=== PATIENT | female | born 1985 | race Two or more races ===

== ENCOUNTER 2018-12-28 14:29 | Observation (INO) | payer MEDICAID ==
[~2018-12-28 14:29] MED LIST: PREN-96 PO
[2018-12-28] MEDS ORDERED: METF-370 PO (14:49)
== END 2018-12-28 16:00 | disposition home or self-care (01) | DRG 566 ==
LOC: LDRP 14:29
PROVIDERS: ADMIT Obstetrics & Gynecology; ATTEND Obstetrics & Gynecology
DX: O24.419 Gestational diabetes mellitus in pregnancy, unspecified control (principal); Z3A.36 36 weeks gestation of pregnancy
CPT/HCPCS: 59025; 76818; 81002; G0378

== ENCOUNTER 2019-01-04 10:20 | Observation (INO) | payer MEDICAID ==
[~2019-01-04 10:20] MED LIST changes: +METF-370 PO
== END 2019-01-04 12:50 | disposition home or self-care (01) | DRG 566 ==
LOC: LDRP 10:20
PROVIDERS: ADMIT Obstetrics & Gynecology; ATTEND Obstetrics & Gynecology
DX: O24.419 Gestational diabetes mellitus in pregnancy, unspecified control (principal); Z3A.37 37 weeks gestation of pregnancy
CPT/HCPCS: 59025; 76818; 81002; 82948; 82962; G0378

== ENCOUNTER 2019-01-08 13:51 | Observation (INO) | payer MEDICAID | END 2019-01-08 16:27 | disposition home or self-care (01) | DRG 566 | LOC: LDRP 13:51 | PROVIDERS: ADMIT Specialist; ATTEND Specialist | DX: O24.419 Gestational diabetes mellitus in pregnancy, unspecified control (principal); Z3A.37 37 weeks gestation of pregnancy | CPT/HCPCS: 59025; 76818; 81002; 82948; 82962; G0378 ==

== ENCOUNTER 2019-01-10 10:59 | Observation (INO) | payer MEDICAID | END 2019-01-10 12:51 | disposition home or self-care (01) | DRG 566 | LOC: LDRP 10:59 | PROVIDERS: ADMIT Specialist; ATTEND Specialist | DX: O24.415 Gestational diabetes mellitus in pregnancy, controlled by oral hypoglycemic drugs (principal); Z3A.37 37 weeks gestation of pregnancy | CPT/HCPCS: 59025; 76818; 81002; 82962; G0378 ==

== ENCOUNTER 2019-01-11 11:27 | Observation (INO) | payer MEDICAID | END 2019-01-16 12:25 | disposition home or self-care (01) | DRG 566 | LOC: CANPREIN → LDRP 01-16 10:50 → UNDOADMOB 01-16 10:50 → OVERFLOW 01-16 10:50 → UNDODISOB 01-16 12:25 | PROVIDERS: ADMIT Specialist; ATTEND Specialist | DX: O24.419 Gestational diabetes mellitus in pregnancy, unspecified control (principal); Z3A.38 38 weeks gestation of pregnancy | CPT/HCPCS: 59025; 76818; 81002; 82948; 82962; G0378 ==

== ENCOUNTER 2019-01-19 12:58 | Observation (INO) | payer MEDICAID ==
[2019-01-20] MEDS ORDERED: FERR1TAB36 PO (04:29)
== END 2019-01-19 14:15 | disposition home or self-care (01) | DRG 833 ==
LOC: LDRP 12:58
PROVIDERS: ADMIT Obstetrics & Gynecology; ATTEND Obstetrics & Gynecology
DX: O24.419 Gestational diabetes mellitus in pregnancy, unspecified control (principal); Z3A.39 39 weeks gestation of pregnancy
CPT/HCPCS: 59025; 76818; 81002; G0378

== ENCOUNTER 2019-01-20 02:44 | Inpatient (IN) | payer MEDICAID ==
[~2019-01-20] VITALS: Ht 147.3 cm; Wt 68.9 kg
[2019-01-20] MEDS ORDERED: LACT. RINGERS/OXYTOCIN 20UNITS 1,000 ML IV SCH (03:28)
[2019-01-20] MEDS ORDERED: LIDOCAINE 2%HCL (LOCAL ANESTH.) INJ 20ML MDV ID PRN (03:30)
[2019-01-20] MEDS ORDERED: METHYLERGONOVINE MALEATE 0.2 MG/ML AMP IM PRN (03:30)
[2019-01-20] MEDS ORDERED: WITCH HAZEL-GLYCERIN PAD TOP PRN (03:30)
[2019-01-20] MEDS ORDERED: PHISODERM TOP SOLN 240ML BTL TOP PRN (03:30)
[2019-01-20] MEDS ORDERED: NALBUPHINE HCL 10 MG/1ml INJECTION IV PRN (03:30)
[2019-01-20] MEDS ORDERED: DERMOPLAST 60ML BOTTLE TOP PRN (03:30)
[2019-01-20] MEDS ORDERED: PROMETHAZINE HCL 25 MG/ML 1ML IV PRN (03:45)
[2019-01-20] MEDS ORDERED: ACCU-CHEK COMFORT CURVE STRIP VI SCH (04:00)
[2019-01-20 04:22] LABS: Basophils # (auto) 0 uL; Basophils % (auto) 0.3 % (0.0-2.0); Eosinophils # (auto) 0.1 uL; Eosinophils % (auto) 0.9 % (0.0-7.0); Hematocrit 34.1 % (36.0-46.0); Hemoglobin 11.7 g/dL (12.2-16.2); Lymphocytes # (auto) 1.8 uL; Lymphocytes % (auto) 24.9 % (10.0-50.0); Mean Corpuscular Hemoglobin 30.7 pg (28.0-32.0); Mean Corpuscular Hgb Conc. 34.4 g/dL (32.0-36.0); Mean Corpuscular Volume 89.2 fL (80.0-100.0); Monocytes # (auto) 0.4 uL; Monocytes % (auto) 6.3 % (0.0-12.0); Neutrophils # (auto) 4.8 uL; Neutrophils % (auto) 67.6 % (37.0-80.0); Nucleated Red Blood Cells % 0.1 %; Platelet Count (auto) 204 10^3/uL (140-450); Red Blood Cells 3.82 10^6/uL (4.0-5.20); Red Cell Distribution Width 15.6 % (11.8-14.3); White Blood Cell 7.2 10^3/uL (4.4-10.8)
[2019-01-20] MEDS ORDERED: FERR1TAB36 PO (04:29)
[2019-01-20 04:36] LABS: Albumin 2.6 g/dL (3.4-5.0); Calcium 8.4 mg/dL (8.5-10.1); Potassium 3.7 mmol/L (3.5-5.1)
[2019-01-20 04:39] LABS: Urine Bacteria NONE SEEN /hpf (None Seen); Urine Blood 2+ /uL (Negative); Urine Mucus FEW (None Seen); Urine Specific Gravity 1.022 (1.001-1.035); Urine WBC 18 /hpf (0 - 5)
[2019-01-20 04:40] LABS: INR < 0.93 (0.9-1.15); Partial Thromboplastin Time 26.5 sec (23.64-32.05)
[2019-01-20 04:50] LABS: Alcohol, Urine < 3.0 mg/dL (0-5); Amphetamine Screen, Urine NEGATIVE (NEGATIVE); Barbiturate Scree,Urine NEGATIVE (NEGATIVE); Benzodiazephine Screen, Urine NEGATIVE (NEGATIVE); Cannabinoid Screen, Urine NEGATIVE (NEGATIVE); Cocaine Screen, Urine NEGATIVE (NEGATIVE); Opiate Scree,Urine NEGATIVE (NEGATIVE); Phencyclidine Screen, Urine NEGATIVE (NEGATIVE)
[2019-01-20 05:06] LABS: BUN/Creatinine Ratio 15.4
[2019-01-20 05:07] LABS: Bilirubin, Total 0.2 mg/dL (0.2-1.0); Total Protein 6.7 g/dL (6.4-8.2)
[2019-01-20] MEDS ORDERED: LACT. RINGERS/OXYTOCIN 20UNITS 500 ML IV ONE (07:03)
[2019-01-20] MEDS: IBUPROFEN 600 MG TAB PO PRN ×2 (08:26→15:38)
--- NOTE | 2019-01-20 09:24 | NUR ---
Ambulation: Patient OOB with standby assistance by RN. Patient ambulated to bathroom with steady gait. Patient able to void 400ml without difficulty. [facility] teaching provided with returned demonstration by patient. Dermoplast, tucks and clean peripad applied. Clean gown provided and bed linen changed. Patient ambulated back to bed with steady gait and no distress noted.
[2019-01-20] MEDS: LACTATED RINGER'S 1,000 ML IV SCH ×2 (11:28→19:28)
[2019-01-20 11:30] VITALS: BP 109/60
[2019-01-20] MEDS ORDERED: TETANUS-DIPTH-ACEL PERTUSSIS 0.5ML SYRG IM ONE (14:30)
[2019-01-20 15:25] VITALS: BP 108/66
--- NOTE | 2019-01-20 18:30 | NUR ---
Teaching: Reviewed information in [facility] booklet with patient. Discussed benefits of and risks associated with not . Discussed different positions, proper latch, feeding cues, and baby-led . Provided information of medication side effects related to . All questions and concerns addressed at this time. Patient verbalized understanding of information.
[2019-01-20 19:00] VITALS: BP 117/73
[2019-01-20 22:55] VITALS: BP 112/65
[2019-01-21] MEDS: LACTATED RINGER'S 1,000 ML IV SCH (02:12)
[2019-01-21] MEDS: IBUPROFEN 600 MG TAB PO PRN (02:12)
[2019-01-21 03:00] VITALS: BP 109/69
[2019-01-21 07:00] VITALS: BP 112/59
[2019-01-21 07:10] LABS: RPR Non Reactive (Non Reactive)
--- NOTE | 2019-01-21 10:10 | NUR ---
ORDERS RECEIVED TO DISCHARGE PT HOME. ORDERS CARRIED OUT
--- NOTE | 2019-01-21 10:30 | NUR ---
Discharge: Discharge instructions given as ordered. Pt encouraged to follow up with [facility] as instructed. All questions and concerns addressed. Patient verbalized understanding. Medication reconciliation completed and copy given to patient. All required/requested vaccines given and copies of vaccinations given to patient. Patient encouraged to prepare to depart unit.
[2019-01-21 11:20] VITALS: BP 118/68
--- NOTE | 2019-01-21 11:30 | NUR ---
Discharge: Patient taken to vehicle via wheelchair with all personal belongings, accompanied by staff and family member. No distress noted at time of departure, no adverse changes in status since initial assessment.
== END 2019-01-21 11:30 | disposition home or self-care (01) | DRG 560 ==
LOC: LDRP 02:44 → OBSVTOIN 03:25 → LDRP 03:30
PROVIDERS: ADMIT Obstetrics & Gynecology; ATTEND Obstetrics & Gynecology
PROC: 10E0XZZ Delivery of Products of Conception, External Approach (ICD-10-PCS; principal; 2019-01-20)
DX: O77.0 Labor and delivery complicated by meconium in amniotic fluid (principal); O24.429 Gestational diabetes mellitus in childbirth, unspecified control; Z37.0 Single live birth; Z3A.39 39 weeks gestation of pregnancy
CPT/HCPCS: 36415; 59025; 59612; 76815; 80053; 80307; 81001; 81002; 82962; 84112; 85025; 85610; 85730; 86592; 86850; 86900; 86901; 90715; 96365; 96366; 96372; G0378; J2590

== ENCOUNTER 2020-06-26 12:10 | Observation (INO) | payer MEDICAID | END 2020-06-26 13:13 | disposition home or self-care (01) | LOC: LDRP 12:10 | PROVIDERS: ADMIT Obstetrics & Gynecology; ATTEND Obstetrics & Gynecology | DX: O24.419 Gestational diabetes mellitus in pregnancy, unspecified control (principal); Z3A.32 32 weeks gestation of pregnancy | CPT/HCPCS: 59025; 81002; 82948; 82962; G0378; 76818 ==

== ENCOUNTER → 2020-06-26 | Outpatient (CLI) | payer MEDICAID ==
[~2020-06-26] MED LIST changes: +FERR1TAB36 PO
== END | disposition home or self-care (01) ==
LOC: XYW 10:16
PROVIDERS: ATTEND Obstetrics & Gynecology
DX: O24.419 Gestational diabetes mellitus in pregnancy, unspecified control (principal); Z3A.00 Weeks of gestation of pregnancy not specified
CPT/HCPCS: 76818

== ENCOUNTER 2020-07-02 15:35 | Observation (INO) | payer MEDICAID ==
[~2020-07-02] VITALS: Ht 147.3 cm; Wt 68.9 kg
[~2020-07-02 15:35] MED LIST changes: -FERR1TAB36 PO; -METF-370 PO
== END 2020-07-02 17:06 | disposition home or self-care (01) ==
LOC: LDRP 15:35
PROVIDERS: ADMIT Obstetrics & Gynecology; ATTEND Obstetrics & Gynecology
DX: O24.419 Gestational diabetes mellitus in pregnancy, unspecified control (principal); Z3A.33 33 weeks gestation of pregnancy
CPT/HCPCS: 59025; 76818; 81002; 82948; 82962; G0378

== ENCOUNTER 2020-07-16 09:01 | Observation (INO) | payer MEDICAID | END 2020-07-16 10:45 | disposition home or self-care (01) | LOC: LDRP 09:01 | PROVIDERS: ADMIT Obstetrics & Gynecology; ATTEND Obstetrics & Gynecology | DX: O24.419 Gestational diabetes mellitus in pregnancy, unspecified control (principal); Z3A.35 35 weeks gestation of pregnancy | CPT/HCPCS: 59025; 76818; 81002; 82948; 82962; G0378 ==

== ENCOUNTER 2020-07-24 08:55 | Observation (INO) | payer MEDICAID ==
[~2020-07-24] VITALS: Ht 147.3 cm; Wt 68.9 kg
== END 2020-07-24 11:25 | disposition home or self-care (01) ==
LOC: LDRP 08:55
PROVIDERS: ADMIT Obstetrics & Gynecology; ATTEND Obstetrics & Gynecology
DX: O24.419 Gestational diabetes mellitus in pregnancy, unspecified control (principal); Z3A.35 35 weeks gestation of pregnancy
CPT/HCPCS: 59025; 76818; 81002; 82962; G0378

== ENCOUNTER 2020-07-31 08:35 | Observation (INO) | payer MEDICAID | END 2020-07-31 09:55 | disposition home or self-care (01) | LOC: LDRP 08:35 | PROVIDERS: ADMIT Obstetrics & Gynecology; ATTEND Obstetrics & Gynecology | DX: O24.419 Gestational diabetes mellitus in pregnancy, unspecified control (principal); O34.63 Maternal care for abnormality of vagina, third trimester; N89.8 Other specified noninflammatory disorders of vagina; Z3A.37 37 weeks gestation of pregnancy; Z79.899 Other long term (current) drug therapy | CPT/HCPCS: 59025; 76818; 81002; 82948; 82962; G0378 ==

== ENCOUNTER 2020-08-04 09:42 | Observation (INO) | payer MEDICAID | END 2020-08-04 11:58 | disposition home or self-care (01) | LOC: LDRP 09:42 | PROVIDERS: ADMIT Specialist; ATTEND Specialist | DX: O62.9 Abnormality of forces of labor, unspecified (principal); Z3A.38 38 weeks gestation of pregnancy; Z79.899 Other long term (current) drug therapy | CPT/HCPCS: 59025; 76815; 81002; 82948; 82962; G0378 ==

== ENCOUNTER 2020-08-08 10:23 | Inpatient (IN) | payer MEDICAID ==
[~2020-08-08] VITALS: Ht 147.3 cm; Wt 68.9 kg
[2020-08-08] VITALS (8 sets, daily range): BP systolic 110–117; BP diastolic 60–71
[2020-08-08] MEDS ORDERED: ceFAZolin 1GM/50ML 50 ML IV ONE (12:30)
[2020-08-08] MEDS ORDERED: LACTATED RINGER'S 2,000 ML IV ONE (12:45)
[2020-08-08 13:43] LABS: Basophils # (auto) 0 10 ^3/uL (0-0.2); Basophils % (auto) 0.2 % (0.0-2.0); Eosinophils # (auto) 0 10 ^3/uL (0-0.8); Eosinophils % (auto) 0.7 % (0.0-7.0); Hematocrit 33.7 % (36.0-46.0); Hemoglobin 11.4 g/dL (12.2-16.2); Lymphocytes # (auto) 1.6 10 ^3/uL (0.4-5.4); Lymphocytes % (auto) 23.7 % (10.0-50.0); Mean Corpuscular Hemoglobin 30.3 pg (28.0-32.0); Mean Corpuscular Hgb Conc. 33.9 g/dL (32.0-36.0); Mean Corpuscular Volume 89.3 fL (80.0-100.0); Monocytes # (auto) 0.5 10 ^3/uL (0-1.3); Monocytes % (auto) 8.2 % (0.0-12.0); Neutrophils # (auto) 4.5 10 ^3/uL (1.6-8.6); Neutrophils % (auto) 67.2 % (37.0-80.0); Nucleated Red Blood Cells % 0.2 %; Platelet Count (auto) 190 10^3/uL (140-450); Red Blood Cells 3.77 10^6/uL (4.0-5.20); Red Cell Distribution Width 15.9 % (11.8-14.3); White Blood Cell 6.6 10^3/uL (4.4-10.8)
[2020-08-08] MEDS ORDERED: TETRACAINE 1% INJ 2 ML VIAL IJ ONE (13:44)
[2020-08-08 13:55] LABS: Urine Bacteria FEW /hpf (None Seen); Urine Blood Negative /uL (Negative); Urine Mucus FEW (None Seen); Urine WBC 8 /hpf (0 - 5)
[2020-08-08 13:56] LABS: Albumin 2.4 g/dL (3.4-5.0); BUN/Creatinine Ratio 12.2; Calcium 8.1 mg/dL (8.5-10.1); Potassium 3.7 mmol/L (3.5-5.1)
[2020-08-08 13:58] LABS: Bilirubin, Total 0.3 mg/dL (0.2-1.0); Total Protein 6.3 g/dL (6.4-8.2)
[2020-08-08] MEDS ORDERED: MORPHINE SULF(PF) 0.5MG/ML 10ML VIAL ONE (14:00)
[2020-08-08] MEDS ORDERED: fentaNYL CITRATE 100 MCG/2 ML VL ONE (14:00)
[2020-08-08] MEDS ORDERED: SODIUM CITR/CITRIC ACID ORAL SOLN 30 ML PO ONE (14:00)
[2020-08-08 14:11] LABS: INR 0.94 (0.9-1.15); Partial Thromboplastin Time 26.1 sec (23.0-31.2)
[2020-08-08] MEDS ORDERED: oxyTOCIN 10 UNIT/ML 10ML VIAL ONE (15:20)
[2020-08-08] MEDS ORDERED: ePHEDrine SULFATE 50 MG/ML AMP ONE (15:20)
[2020-08-08] MEDS ORDERED: MORPHINE SULFATE 4 MG/ML SYR/VIAL IV PRN (15:30)
[2020-08-08] MEDS ORDERED: ONDANSETRON HCL 4 MG/2 ML VIAL IV PRN ×2 (15:30→15:45)
[2020-08-08] MEDS ORDERED: ceFAZolin 1GM/50ML 50 ML IV SCH (15:30)
[2020-08-08] MEDS ORDERED: HYDROmorphone HCL 2 MG/ML VL IV PRN (15:45)
[2020-08-08] MEDS ORDERED: DexAMETHasone SOD PHOS 10MG/1ML VIAL INJ IV PRN (15:45)
[2020-08-08] MEDS ORDERED: KETOROLAC TROMETH 30 MG/ML 1ML VIAL IV PRN (15:45)
[2020-08-08] MEDS ORDERED: NALOXONE HCL 0.4 MG/ML VIAL IV PRN (15:45)
[2020-08-08] MEDS ORDERED: NALBUPHINE HCL 10 MG/1ml INJECTION SUBCUT ONE (15:45)
[2020-08-08] MEDS: diphenhdrAMINE HCL 50 MG/1 ML VL IV PRN (17:12)
[2020-08-08 17:27] LABS: Alcohol, Urine < 3.0 mg/dL (0-10); Amphetamine Screen, Urine NEGATIVE (NEGATIVE); Barbiturate Scree,Urine NEGATIVE (NEGATIVE); Benzodiazephine Screen, Urine NEGATIVE (NEGATIVE); Cannabinoid Screen, Urine NEGATIVE (NEGATIVE); Cocaine Screen, Urine NEGATIVE (NEGATIVE); Opiate Scree,Urine NEGATIVE (NEGATIVE); Phencyclidine Screen, Urine NEGATIVE (NEGATIVE)
[2020-08-08] MEDS: LACT. RINGERS/OXYTOCIN 20UNITS 1,000 ML IV SCH ×2 (19:10→22:10)
[2020-08-08] MEDS ORDERED: ACETAMINOPHEN IV 1000 MG/100ML (10MG/ML) IV ONE (20:15)
[2020-08-08] MEDS ORDERED: GUM (CHEWING) 1 GUM CHEW CHEW ONE (20:15)
[2020-08-08] MEDS: ceFAZolin 1GM/50ML 50 ML IV SCH (22:05)
[2020-08-08 23:29] LABS: Basophils # (auto) 0 10 ^3/uL (0-0.2); Basophils % (auto) 0.2 % (0.0-2.0); Eosinophils # (auto) 0 10 ^3/uL (0-0.8); Eosinophils % (auto) 0.2 % (0.0-7.0); Hematocrit 27.8 % (36.0-46.0); Hemoglobin 9.6 g/dL (12.2-16.2); Lymphocytes # (auto) 1.2 10 ^3/uL (0.4-5.4); Lymphocytes % (auto) 12.8 % (10.0-50.0); Mean Corpuscular Hemoglobin 30.5 pg (28.0-32.0); Mean Corpuscular Hgb Conc. 34.4 g/dL (32.0-36.0); Mean Corpuscular Volume 88.7 fL (80.0-100.0); Monocytes # (auto) 0.7 10 ^3/uL (0-1.3); Monocytes % (auto) 7.6 % (0.0-12.0); Neutrophils # (auto) 7.3 10 ^3/uL (1.6-8.6); Neutrophils % (auto) 79.2 % (37.0-80.0); Nucleated Red Blood Cells % 0.1 %; Platelet Count (auto) 167 10^3/uL (140-450); Red Blood Cells 3.13 10^6/uL (4.0-5.20); White Blood Cell 9.3 10^3/uL (4.4-10.8)
[2020-08-09] VITALS (13 sets, daily range): BP systolic 101–121; BP diastolic 58–82
[2020-08-09] MEDS: diphenhdrAMINE HCL 50 MG/1 ML VL IV PRN (01:16)
[2020-08-09] MEDS: LACT. RINGERS/OXYTOCIN 20UNITS 1,000 ML IV SCH (04:50)
[2020-08-09 05:07] LABS: RPR Non Reactive (Non Reactive)
[2020-08-09] MEDS ORDERED: LACTATED RINGER'S 1,000 ML IV SCH ×2 (05:30→15:30)
[2020-08-09] MEDS: ceFAZolin 1GM/50ML 50 ML IV SCH (05:55)
[2020-08-09 07:28] LABS: Basophils # (auto) 0 10 ^3/uL (0-0.2); Basophils % (auto) 0.4 % (0.0-2.0); Eosinophils # (auto) 0 10 ^3/uL (0-0.8); Eosinophils % (auto) 0.5 % (0.0-7.0); Hematocrit 25.3 % (36.0-46.0); Hemoglobin 8.8 g/dL (12.2-16.2); Lymphocytes # (auto) 1.2 10 ^3/uL (0.4-5.4); Lymphocytes % (auto) 16.9 % (10.0-50.0); Mean Corpuscular Hemoglobin 30.9 pg (28.0-32.0); Mean Corpuscular Hgb Conc. 34.9 g/dL (32.0-36.0); Mean Corpuscular Volume 88.6 fL (80.0-100.0); Monocytes # (auto) 0.6 10 ^3/uL (0-1.3); Monocytes % (auto) 8.3 % (0.0-12.0); Neutrophils # (auto) 5.2 10 ^3/uL (1.6-8.6); Neutrophils % (auto) 73.9 % (37.0-80.0); Platelet Count (auto) 152 10^3/uL (140-450); Red Blood Cells 2.85 10^6/uL (4.0-5.20); Red Cell Distribution Width 15.5 % (11.8-14.3); White Blood Cell 7.1 10^3/uL (4.4-10.8)
[2020-08-09] MEDS ORDERED: ACETAMINOPHEN IV 1000 MG/100ML (10MG/ML) IV ONE (11:30)
[2020-08-09] MEDS ORDERED: BISACODYL 10 MG RECT SUPP PR PRN (15:30)
[2020-08-09] MEDS: SIMETHICONE 80 MG CHEWABLE TABLET PO SCH ×2 (16:03→22:51)
[2020-08-09] MEDS: HYDROcodone-ACET 5/325MG TAB PO PRN ×2 (16:04→22:34)
[2020-08-09] MEDS: DOCUSATE SOD 100 MG CAP PO SCH (22:51)
[2020-08-10 03:30] VITALS: BP 99/58
[2020-08-10] MEDS: HYDROcodone-ACET 5/325MG TAB PO PRN ×4 (03:58→21:36)
[2020-08-10 07:00] VITALS: BP 105/63
[2020-08-10] MEDS: SIMETHICONE 80 MG CHEWABLE TABLET PO SCH ×4 (07:12→21:36)
[2020-08-10] MEDS: IBUPROFEN 800 MG TAB PO PRN ×2 (07:13→15:31)
[2020-08-10 11:00] VITALS: BP 113/66
[2020-08-10] MEDS: DOCUSATE SOD 100 MG CAP PO SCH ×2 (13:16→21:36)
[2020-08-10] MEDS: ceFAZolin 1GM/50ML 50 ML IV SCH (14:18)
[2020-08-10 15:00] VITALS: BP 110/66
[2020-08-10 19:00] VITALS: BP 113/71
[2020-08-10 23:00] VITALS: BP 120/75
[2020-08-11] MEDS: IBUPROFEN 800 MG TAB PO PRN ×2 (02:00→10:45)
[2020-08-11 03:03] VITALS: BP 96/63
[2020-08-11] MEDS: SIMETHICONE 80 MG CHEWABLE TABLET PO SCH (05:49)
[2020-08-11] MEDS: DOCUSATE SOD 100 MG CAP PO SCH (06:42)
[2020-08-11] MEDS: HYDROcodone-ACET 5/325MG TAB PO PRN (06:42)
[2020-08-11 07:00] VITALS: BP 110/70
== END 2020-08-11 12:30 | disposition home or self-care (01) | DRG 540 ==
LOC: LDRP 10:54 → OBSVTOIN 12:27 → LDRP 08-09 09:53
PROVIDERS: ADMIT Specialist; ATTEND Specialist
PROC: 10D00Z1 Extraction of Products of Conception, Low, Open Approach (ICD-10-PCS; principal; 2020-08-08 14:30)
DX: O32.1XX0 Maternal care for breech presentation, not applicable or unspecified (principal); O24.429 Gestational diabetes mellitus in childbirth, unspecified control; D64.9 Anemia, unspecified; O34.211 Maternal care for low transverse scar from previous cesarean delivery; Z20.822 Contact with and (suspected) exposure to COVID-19; Z3A.38 38 weeks gestation of pregnancy; Z37.0 Single live birth; O90.81 Anemia of the puerperium
CPT/HCPCS: 36415; 59025; 76818; 80053; 80307; 81001; 81002; 82948; 82962; 85025; 85610; 85730; 86592; 86850; 86900; 86901; 87426; 94760; 94762; 96361; 96365; 96366; 96374; G0378; J0131; J0690; J1885; J2590